=== PATIENT | female | born 1965 | race Asian ===

== ENCOUNTER 2017-06-10 09:42 | Emergency (ER) | payer OTHER ==
[~2017-06-10] VITALS: Ht 162.6 cm; Wt 127.2 kg
[~2017-06-10 09:42] MED LIST: MO4B PO
[2017-06-10 10:21] VITALS: BP 184/94
[2017-06-10] MEDS ORDERED: IBUP-2071 PO (10:54)
[2017-06-10] MEDS ORDERED: GuaiFENesin/D-METHORPHAN [SUGAR-FREE] 200-20MG/10 ML SYRUP UDCUP PO ONE (11:00)
[2017-06-10] MEDS ORDERED: IBUPROFEN 800 MG TABLET PO ONE (11:00)
[2017-06-10] MEDS ORDERED: ACETAMINOPHEN 325 MG TABLET PO ONE (11:15)
== END 2017-06-10 11:24 | disposition home or self-care (01) ==
LOC: EMS 09:43
DX: J06.9 Acute upper respiratory infection, unspecified (principal); I10 Essential (primary) hypertension; J45.909 Unspecified asthma, uncomplicated
CPT/HCPCS: 99283